=== PATIENT | male | born 1960 | race Caucasian/White ===

== ENCOUNTER 2021-10-25 15:46 | Emergency (ER) | payer OTHER ==
[~2021-10-25] VITALS: Ht 177.8 cm; Wt 136.1 kg
[~2021-10-25 15:46] MED LIST: ALPHA LIPOIC A300 MG PO; ASPIRIN EC81 MG PO; ATENOLOL25 MG PO; COREG6.25 MG PO; COZAAR25 MG PO; DILTIAZEM HCL120 MG PO; DIPHENHYDRAMINE50 MG PO; DOXYCYCLINE HY100 MG PO; GABAPENTIN600 MG PO; HYDROCHLOROTH12.5 M1 PO; HYDROCHLOROTHIA25 MG PO; LIPITOR20 MG PO; NEOMYCIN-POLYMY10 M1 OTIC; NORCO 5-325 TA1 EACH PO; OMEPRAZOLE20 MG PO; SIMVASTATIN20 MG PO; SINEMET 25-1001 EACH PO; SINEMET CR 25-1 EACH PO; VENTOLIN HFA18 GM INH
[2021-10-25] MEDS ORDERED: CRESTOR20 MG PO (16:08)
[2021-10-25] MEDS ORDERED: ZESTRIL20 MG PO (16:08)
[2021-10-25] MEDS ORDERED: FAMOTIDINE20 MG PO (16:09)
[2021-10-25] MEDS ORDERED: VENTOLIN HFA18 GM (16:09)
[2021-10-25] MEDS ORDERED: TOPROL XL50 MG PO (16:09)
[2021-10-25] MEDS ORDERED: CELEBREX50 MG (16:09)
[2021-10-25] MEDS ORDERED: TRICOR48 MG NG (16:10)
== END 2021-10-25 22:27 | disposition home or self-care (01) ==
LOC: ED 15:46
DX: R19.00 Intra-abdominal and pelvic swelling, mass and lump, unspecified site (principal); R10.9 Unspecified abdominal pain; R22.1 Localized swelling, mass and lump, neck; I10 Essential (primary) hypertension; K21.9 Gastro-esophageal reflux disease without esophagitis; E78.5 Hyperlipidemia, unspecified; Z79.899 Other long term (current) drug therapy; Z88.5 Allergy status to narcotic agent; Z79.82 Long term (current) use of aspirin
CPT/HCPCS: 36415; 70491; 71260; 74177; 80053; 81001; 83690; 85025; J7030; Q9967

== ENCOUNTER 2024-03-21 07:22 | Emergency (ER) | payer OTHER ==
[~2024-03-21] VITALS: Ht 177.8 cm; Wt 128.4 kg
[~2024-03-21 07:22] MED LIST changes: +CELEBREX50 MG; +CRESTOR20 MG PO; +FAMOTIDINE20 MG PO; +TOPROL XL50 MG PO; +TRICOR48 MG NG; +VENTOLIN HFA18 GM; +ZESTRIL20 MG PO
[2024-03-21] MEDS ORDERED: CYMBALTA60 MG PO (07:34)
[2024-03-21 07:50] LABS: EOSINOPHILS 2.4 % (0-6); HEMATOCRIT 44.8 % (35.0-50.0); HEMOGLOBIN 15.2 g/dL (12.0-18.0); LYMPHOCYTES 20.9 % (24-44); MCV 88.2 fl (81-99); MONOCYTES 9.2 % (0-12); NEUTROPHILS 66.5 % (39-80); PLATELET COUNT 256 K/uL (140-440); RBC 5.07 M/ul (4.3-5.7)
[2024-03-21 08:05] LABS: ALBUMIN 3.7 g/dL (3.4-5.0); ALBUMIN/GLOBULIN RATIO 0.93 (1.1-2.4); ANION GAP 11.6 (7-21); BILIRUBIN, TOTAL 0.3 ng/dL (0.2-1.0); BUN/CREATININE RATIO 15.62 (6.0-28.6); CALCIUM 8.8 mg/dL (8.5-10.1); CREATININE, SERUM 1.28 mg/dL (0.70-1.30); POTASSIUM 4.6 mmol/L (3.5-5.1); PROTEIN, TOTAL 7.7 g/dL (6.4-8.2)
[2024-03-21 09:14] LABS: BILIRUBIN, URINE NEGATIVE (negative); BLOOD/HGB, URINE LARGE (Negative); KETONE, URINE NEGATIVE (Negative); LEUK ESTERASE, URINE NEGATIVE (negative); NITRITE, URINE NEGATIVE (negative)
[2024-03-21 09:17] LABS: CASTS, URINE NONE SEEN \\lpf; CRYSTALS, URINE NONE SEEN (0-1+); EPITHELIAL CELLS, URINE 0 /lpf (0-1+); WHITE BLOOD CELLS, URINE 0-1 /HPF (0-5)
[2024-03-21 09:18] LABS: BACTERIA, URINE NONE SEEN /hpf (negative); COLLECTION TYPE, URINE CLEAN CATCH; REFLEX CULTURE, URINE No (No)
[2024-03-21] MEDS ORDERED: FLOMAX0.4 MG PO (09:20)
[2024-03-21] MEDS ORDERED: ONDANSETRON ODT8 MG PO (09:20)
[2024-03-21] MEDS ORDERED: HYDROCODON-ACE1 EA11 PO (09:20)
[2024-03-21] MEDS ORDERED: KETOROLAC TROMETHAMINE 30 MG/ML VIAL IV ONE (09:30)
[2024-03-21] MEDS ORDERED: TAMSULOSIN HCL 0.4 MG CAP PO ONE (09:30)
[2024-03-21] MEDS ORDERED: ondansetron HCL 4 MG/2 ML VIAL IV ONE (09:30)
[2024-03-21 09:50] VITALS: BP 150/95
== END 2024-03-21 09:51 | disposition home or self-care (01) ==
LOC: ED 07:22
PROVIDERS: Emergency Medicine
DX: N20.2 Calculus of kidney with calculus of ureter (principal); I10 Essential (primary) hypertension; K21.9 Gastro-esophageal reflux disease without esophagitis; G20.A1 Parkinson's disease without dyskinesia, without mention of fluctuations; I48.91 Unspecified atrial fibrillation; I25.2 Old myocardial infarction; E78.5 Hyperlipidemia, unspecified; Z88.5 Allergy status to narcotic agent; Z79.899 Other long term (current) drug therapy
CPT/HCPCS: 36415; 74177; 80053; 81001; 83690; 85025; 96375; 99284-25; J1885; J2405; Q9967

== ENCOUNTER 2024-06-22 08:53 | Emergency (ER) | payer OTHER ==
[~2024-06-22] VITALS: Ht 177.8 cm; Wt 127.6 kg
[~2024-06-22 08:53] MED LIST changes: +CYMBALTA60 MG PO; +FLOMAX0.4 MG PO; +HYDROCODON-ACE1 EA11 PO; +ONDANSETRON ODT8 MG PO
[2024-06-22 10:30] VITALS: BP 135/79
== END 2024-06-22 10:30 | disposition home or self-care (01) ==
LOC: ED 08:53
DX: Z46.6 Encounter for fitting and adjustment of urinary device (principal); I10 Essential (primary) hypertension; K21.9 Gastro-esophageal reflux disease without esophagitis; I48.91 Unspecified atrial fibrillation; E78.5 Hyperlipidemia, unspecified; Z79.899 Other long term (current) drug therapy; Z88.5 Allergy status to narcotic agent
CPT/HCPCS: 74018; 99283

== ENCOUNTER 2024-06-27 11:02 | Emergency (ER) | payer OTHER ==
[~2024-06-27] VITALS: Ht 177.8 cm; Wt 127.0 kg
--- OUTSIDE RECORDS SUMMARY | 2024-06-27 11:09 | XMS ---
PreManage Notification: ANNIKA STRONG Security Computer Technical Support Specialist Events No recent Security Events currently on file CRITERIA MET - [facility] - 2 Visits in 30 Days CARE PROVIDERS There are no care providers on record at this time. Vivian has no Care Guidelines for this patient. Geni VISIT COUNT (12 MO.) [address] [facility] TOTAL 3 NOTE: Visits indicate total known visits. ED/C VISIT TRACKING (12 MO.) 06/27/2024 11:[address] [facility] [place] TYPE: Emergency COMPLAINT: - ABDOMINAL PAIN 06/22/2024 08:54 [facility] [place] TYPE: Emergency COMPLAINT: - URINARY ISSUES DIAGNOSES: - Allergy status to narcotic agent - Encounter for fitting and adjustment of urinary device - Essential (primary) hypertension - Gastro-esophageal reflux disease without esophagitis - Hyperlipidemia, unspecified - Other prison (current) drug therapy - Unspecified atrial fibrillation 03/21/2024 07:22 [facility] [place] TYPE: Emergency COMPLAINT: - ABDOMINAL PAIN DIAGNOSES: - Allergy status to narcotic agent - Calculus of kidney with calculus of ureter - Essential (primary) hypertension - Gastro-esophageal reflux disease without esophagitis - Hyperlipidemia, unspecified - Old myocardial infarction - Other predatory animal exterminator (current) drug therapy - Parkinson's disease without dyskinesia, without mention of fluctuations - Unspecified abdominal pain - Unspecified atrial fibrillation INPATIENT VISIT TRACKING (12 MO.) No inpatient visits to display in this time frame [email or web address]
[2024-06-27 11:27] LABS: BASOPHILS 1.3 % (0-2); EOSINOPHILS 3.5 % (0-6); HEMATOCRIT 47.5 % (35.0-50.0); HEMOGLOBIN 16.5 g/dL (12.0-18.0); LYMPHOCYTES 21.4 % (24-44); MCH 30.1 (27-36); MCHC 34.7 g/dl (30-36); MCV 86.7 fl (81-99); MONOCYTES 8.4 % (0-12); NEUTROPHILS 65.4 % (39-80); PLATELET COUNT 286 K/uL (140-440); RBC 5.48 M/ul (4.3-5.7); RDW 14.1 (10.5-15.0)
[2024-06-27 11:38] LABS: ALBUMIN 3.7 g/dL (3.4-5.0); ALBUMIN/GLOBULIN RATIO 0.88 (1.1-2.4); ANION GAP 12.3 (7-21); BILIRUBIN, TOTAL 0.4 mg/dL (0.2-1.0); BUN/CREATININE RATIO 17.27 (6.0-28.6); CREATININE, SERUM 1.1 mg/dL (0.70-1.30); POTASSIUM 4.3 mmol/L (3.5-5.1); PROTEIN, TOTAL 7.9 g/dL (6.4-8.2)
[2024-06-27 12:55] LABS: BILIRUBIN, URINE NEGATIVE (negative); BLOOD/HGB, URINE MODERATE (Negative); KETONE, URINE NEGATIVE (Negative); LEUK ESTERASE, URINE NEGATIVE (negative); NITRITE, URINE NEGATIVE (negative); RED BLOOD CELLS, URINE 21-40 /hpf (0-5)
[2024-06-27 12:56] LABS: BACTERIA, URINE RARE /hpf (negative); CASTS, URINE NONE SEEN \\lpf; COLLECTION TYPE, URINE CLEAN CATCH; CRYSTALS, URINE NONE SEEN (0-1+); EPITHELIAL CELLS, URINE 0 /lpf (0-1+); REFLEX CULTURE, URINE Yes (No)
[2024-06-27] MEDS ORDERED: HYDROCODON-ACE1 EA10 PO (13:26)
[2024-06-27] MEDS ORDERED: ONDANSETRON ODT4 MG PO (13:26)
[2024-06-27] MEDS ORDERED: IBU600 MG PO (13:26)
[2024-06-27] MEDS ORDERED: ONDANSETRON 4 MG TAB ODT SL ONE (13:30)
[2024-06-27] MEDS ORDERED: HYDROCODONE/ACETA 5/325 TAB PO ONE (13:30)
[2024-06-27 13:51] VITALS: BP 145/86
== END 2024-06-27 13:51 | disposition home or self-care (01) ==
LOC: ED 11:02
PROVIDERS: Emergency Medicine
DX: R10.9 Unspecified abdominal pain (principal); I10 Essential (primary) hypertension; K21.9 Gastro-esophageal reflux disease without esophagitis; I48.91 Unspecified atrial fibrillation; E78.5 Hyperlipidemia, unspecified; I25.2 Old myocardial infarction; Z79.899 Other long term (current) drug therapy; Z88.5 Allergy status to narcotic agent
CPT/HCPCS: 36415; 76775; 76870; 80053; 81001; 83690; 85025; 87088; 99284; A9270